=== PATIENT | female | born 1985 | race Caucasian/White ===

== ENCOUNTER 2022-04-28 10:14 | Emergency (ER) | payer BC, SELFPAY ==
[2022-04-28 10:22] VITALS: BP 118/77; PULSE 81; RESP 16; TEMP 36.9; O2SAT 99
--- NOTE | 2022-04-28 10:27 | ED.SKABFB ---
HPI - Skin/Abscess/Foreign Bdy General Chief complaint: Skin/Abscess/Foreign Body Stated complaint: Poss poison dorothy rash Time Seen by Provider: 04/28/22 10:27 Source: patient Mode of arrival: ambulatory Limitations: no limitations History of Present Illness HPI narrative: 36 yo F presents with c/o itchy red rash to hands, arms, L lower leg, forehead and around eyes. Also to ABD and R buttock area. Using hydrocortisone cream and benadryl with no relief. rash to 3 days. Started after doing hard work. All systems reviewed and negative except as noted above. Related Data Allergies Allergy/AdvReac Type Severity Reaction Status Date / Time No Known Allergies Allergy Verified 04/28/22 10:27 Review of Systems Review of Systems: CONSTITUTIONAL: Denies fever, chills, or sweats. EYES: Denies visual changes, redness, or discharge. ENT: Denies rhinorrhea, congestion, sore throat, or otalgia. CARDIOVASCULAR: Denies chest pain, palpitations, or edema. RESPIRATORY: Denies cough or dyspnea. GASTROINTESTINAL: Denies abdominal pain, nausea, vomiting, or diarrhea. GENITOURINARY: Denies dysuria or hematuria. SKIN: reports itchy rash to bilateral upper and lower extremities, face, abdomen. MUSCULOSKELETAL: Denies back pain, joint pain, or myalgia. NEUROLOGIC: Denies headache, numbness, or weakness. PSYCHIATRIC: Denies anxiety or depression. All other systems reviewed are negative, except as documented in HPI. PMFSH Comments At time of signature, agree with nursing past medical, surgical, social and family history. There is no relevant family history pertinent to the presenting complaint. Exam Narrative: GENERAL: This is a well-nourished, well-developed patient, in no apparent distress. HEAD: normocephalic, atraumatic. EYES: PERRL. Sclera clear/white. Vision is grossly intact. EARS: External ears normal NOSE: External nose normal NECK: Neck supple, non-tender without lymphadenopathy, masses or thyromegaly. CARDIOVASCULAR: Regular rate and rhythm without murmurs, gallops, or rubs. RESPIRATORY: Clear to auscultation. Breath sounds equal bilaterally. No wheezes, rales, or rhonchi. SKIN: warm, Dry, intact with no suspicious lesions or rash, good texture and turgor. NEURO: awake, alert, and oriented to person, place and time. There were no obvious focal neurologic abnormalities. EXTREMITIES: No joint tenderness, effusion, or edema noted. Course Course Level of Care: Express Care Visit Vital Signs Vital signs: Vital Signs Temperature 36.9 C 04/28/22 10:22 Pulse Rate 81 04/28/22 10:22 Respiratory Rate 16 04/28/22 10:22 Blood Pressure 118/77 04/28/22 10:22 Pulse Oximetry 99 04/28/22 10:22 Oxygen Delivery Room Air 04/28/22 10:22 Temperature 36.9 C 04/28/22 10:22 Pulse Rate 81 04/28/22 10:22 Respiratory Rate 16 04/28/22 10:22 Blood Pressure 118/77 04/28/22 10:22 Pulse Oximetry 99 04/28/22 10:22 Oxygen Delivery Room Air 04/28/22 10:22 reviewed MDM - Skin/Abscess/Foreign Bdy MDM Narrative Medical decision making narrative: Patient is aware of diagnosis, understands and agrees to treatment plan. Anticipatory guidance given. Patient agrees to follow-up as directed and is aware of reasons to seek care at the emergency department. Portions of this record may have been created with voice recognition software Differential Diagnosis Differential diagnosis: Likely urticaria, cellulitis, eczema, insect bites and contact dermatitis Discharge Plan Discharge Clinical Impression: Dermatitis due to plants, including poison dorothy, sumac, and oak Patient Disposition: Home, Self-Care Condition: Stable Instructions: Poison Dorothy (ED) Additional Instructions: Take medications as prescribed. Drink plenty of water while taking steroids. Avoid scratching to prevent infection. See your doctor if rash not improving. Prescriptions: New triamcinolone acetonide 0.1 % cream 1 applic top
== END 2022-04-28 10:35 | disposition home or self-care (01) ==
PROVIDERS: Emergency Provider Nurse Practitioner Family
DX: L25.5 Unspecified contact dermatitis due to plants, except food (principal)
CPT/HCPCS: 99203; G0463